=== PATIENT | female | born 1985 ===

== ENCOUNTER 2025-02-17 08:01 | Day surgery (SDC) | payer OTHER ==
[2025-02-11 10:41] VITALS: BP 128/82
[~2025-02-17] VITALS: Ht 157.5 cm; Wt 69.4 kg
[~2025-02-17 08:01] MED LIST: BUPIVACAINE HCL/Mpf 0.5% 10ML VIAL ONE; CEFTRIAXONE SODIUM 2,000 MG VIAL ONE; DIBUCAINE 30 GM TUBE ONE; HEMOSTATIC MATRIX 1 KIT KIT TOP ONE; LIDOCAINE HCL 1%/EPINEPHRINE 20ML VIAL IJ ONE; METRONIDAZOLE/SODIUM CHLORIDE 500 MG/100 ML PIGGYBACK IV ONE; POVIDONE-IODINE 118 ML BOTT TOP ONE
[2025-02-17] MEDS ORDERED: CELECOXIB200 MG PO (09:41)
[2025-02-17] MEDS ORDERED: INTESTINEX680 M1 PO (09:41)
[2025-02-17] MEDS ORDERED: PERCOCET 5-3251 EACH PO (09:41)
[2025-02-17] MEDS ORDERED: NEURONTIN300 MG PO (09:42)
[2025-02-17] MEDS ORDERED: HYDROGEN PEROXIDE 473 ML BOTTLE TOP ONE (09:51)
== END 2025-02-17 13:15 | disposition home or self-care (01) ==
LOC: CIR.AMB 08:01
PROVIDERS: ATTEND Surgery
DX: K60.321 Anal fistula, complex, initial (principal); K60.1 Chronic anal fissure